=== PATIENT | male | born 1955 | race Caucasian/White ===

== ENCOUNTER → 2021-12-25 | Day surgery (SDC) | payer OTHER, MEDICARE ==
[~2021-12-25] VITALS: Ht 182.9 cm; Wt 80.3 kg
[~2021-12-25] MED LIST: ASCORBIC ACID500 MG PO; VITAMIN B-121000 MC1 PO; VITAMIN D310 MC2 PO
[2021-12-25 11:46] LABS: ALBUMIN 3.5 g/dL (3.4-5.0); BILIRUBIN - TOTAL 1.6 mg/dL (0.2-1.0); CREATININE 0.93 mg/dL (0.67-1.17); POTASSIUM 4.2 mmol/L (3.5-5.1); TOTAL PROTEIN 6.5 g/dL (6.4-8.2)
== END | disposition home or self-care (01) ==
LOC: FAS 09:52
PROVIDERS: Surgery
DX: R10.11 Right upper quadrant pain (principal); K59.09 Other constipation; K62.89 Other specified diseases of anus and rectum; K40.91 Unilateral inguinal hernia, without obstruction or gangrene, recurrent; K57.30 Diverticulosis of large intestine without perforation or abscess without bleeding; K80.50 Calculus of bile duct without cholangitis or cholecystitis without obstruction; Z86.010 Personal history of colon polyps; Z87.19 Personal history of other diseases of the digestive system; Z88.5 Allergy status to narcotic agent; Z96.659 Presence of unspecified artificial knee joint
CPT/HCPCS: 36415; 80053; 82150; 83690; J1610; J2704; J7120